=== PATIENT | male | born 1955 | race Caucasian/White ===

== ENCOUNTER → 2016-02-27 | Outpatient (REF) | payer OTHER ==
[2016-02-27 14:17] LABS: ANION GAP 9 MEQ/L (8-16); BLOOD UREA NITROGEN 15 MG/DL (7-18); CALCIUM LEVEL 8.7 MG/DL (8.8-10.2); CARBON DIOXIDE LEVEL 27 MEQ/L (21-32); CHLORIDE LEVEL 103 MEQ/L (98-107); CREATININE FOR GFR 1.16 MG/DL (0.70-1.30); GLOMERULAR FILTRATION RATE > 60.0 (>49); GLUCOSE, FASTING 181 MG/DL (80-110); POTASSIUM SERUM 4.9 MEQ/L (3.5-5.1); SODIUM LEVEL 139 MEQ/L (136-145)
== END ==
LOC: M SFHCPLAZ 11:18
PROVIDERS: ATTEND Nurse Practitioner Family
DX: E11.9 Type 2 diabetes mellitus without complications (principal)

== ENCOUNTER → 2016-05-16 | Outpatient (REF) | payer OTHER ==
[2016-05-16 12:15] LABS: ANION GAP 9 MEQ/L (8-16); BLOOD UREA NITROGEN 15 MG/DL (7-18); CALCIUM LEVEL 8.8 MG/DL (8.8-10.2); CARBON DIOXIDE LEVEL 26 MEQ/L (21-32); CHLORIDE LEVEL 104 MEQ/L (98-107); CREATININE FOR GFR 1.06 MG/DL (0.70-1.30); GLOMERULAR FILTRATION RATE > 60.0 (>49); GLUCOSE, FASTING 144 MG/DL (80-110); POTASSIUM SERUM 4.7 MEQ/L (3.5-5.1); SODIUM LEVEL 139 MEQ/L (136-145)
== END ==
LOC: M SFHCPLAZ 08:05
PROVIDERS: ATTEND Nurse Practitioner Family
DX: E11.9 Type 2 diabetes mellitus without complications (principal)

== ENCOUNTER → 2016-06-28 | Outpatient (REF) | payer OTHER ==
[2016-06-28 12:10] LABS: ALBUMIN 3.5 GM/DL (3.2-5.2); ALBUMIN/GLOBULIN RATIO 0.81 (1.00-1.93); ALKALINE PHOSPHATASE 81 U/L (45-117); ALT/SGPT 31 U/L (12-78); ANION GAP 6 MEQ/L (8-16); AST/SGOT 29 U/L (15-37); BILIRUBIN,TOTAL 0.7 MG/DL (0.2-1.0); BLOOD UREA NITROGEN 13 MG/DL (7-18); CARBON DIOXIDE LEVEL 29 MEQ/L (21-32); CHLORIDE LEVEL 104 MEQ/L (98-107); CREATININE FOR GFR 1.14 MG/DL (0.70-1.30); GLOMERULAR FILTRATION RATE > 60.0 (>49); GLUCOSE, FASTING 125 MG/DL (80-110); POTASSIUM SERUM 4.8 MEQ/L (3.5-5.1); SODIUM LEVEL 139 MEQ/L (136-145); TOTAL PROTEIN 7.8 GM/DL (6.4-8.2)
== END ==
LOC: M SFHCPLAZ 08:01
PROVIDERS: ATTEND Nurse Practitioner Family
DX: E11.9 Type 2 diabetes mellitus without complications (principal)

== ENCOUNTER 2016-09-03 14:50 | Observation (INO) | payer OTHER ==
[~2016-09-03] VITALS: Ht 177.8 cm; Wt 104.6 kg
[2016-09-03] MEDS ORDERED: GEMF600T PO (15:03)
[2016-09-03] MEDS ORDERED: ASPI81TA85 PO (15:03)
[2016-09-03] MEDS ORDERED: ATOR80TA59 PO (15:03)
[2016-09-03] MEDS ORDERED: LISI10TA4 PO (15:03)
[2016-09-03] MEDS ORDERED: METF500T13 PO (15:03)
[2016-09-03] MEDS ORDERED: LABETALOL HCL 100 MG/20 ML VIAL IV STA ×2 (15:11→17:20)
[2016-09-03 15:23] LABS: BASO # 0.1 K/mm3 (0.0-0.2); BASO % 1.1 % (0.0-1.0); EOS # 0.1 K/mm3 (0.0-0.50); EOS % 1.8 % (0.0-3.0); LARGE UNSTAINED CELL # 0.2 K/mm3 (0.0-0.4); LARGE UNSTAINED CELL % 2.5 % (0.0-4.0); LYMPH % 24.8 % (24.0-44.0); MEAN CORPUSCULAR HEMOGLOBIN 34.5 pg (27.0-33.0); MEAN CORPUSCULAR VOLUME 98.8 fl (80.0-96.0); MONO # 0.5 K/mm3 (0.0-0.8); MONO % 7.2 % (0.0-5.0); NEUTROPHILS # 4.6 K/mm3 (1.8-7.7); NEUTROPHILS % 62.6 % (36.0-66.0); PLATELET COUNT, AUTOMATED 233 k/mm3 (150-450); RED CELL DISTRIBUTION WIDTH 12.1 % (11.5-14.5); WHITE BLOOD COUNT 7.3 K/mm3 (4.0-10.0)
[2016-09-03 15:29] LABS: INR 1.02
--- NOTE | 2016-09-03 15:35 | REP ---
CT Head without contrast HISTORY: Infarction COMPARISON: None There is no intraparenchymal hemorrhage, acute infarct, mass or midline shift. The ventricular system is normal in appearance. There is no extra cerebral collection. There is no fracture. The visualized sinuses are clear. IMPRESSION: There is no intracranial lesion. Signed by Vaughn Rodríguez MD 09/03/2016 03:26 P
[2016-09-03 15:47] LABS: ANION GAP 5 MEQ/L (8-16); BLOOD UREA NITROGEN 16 MG/DL (7-18); CALCIUM LEVEL 9.1 MG/DL (8.8-10.2); CARBON DIOXIDE LEVEL 28 MEQ/L (21-32); CHLORIDE LEVEL 105 MEQ/L (98-107); CREATININE FOR GFR 1.38 MG/DL (0.70-1.30); GLOMERULAR FILTRATION RATE 55.8 (>49); GLUCOSE, FASTING 171 MG/DL (80-110); POTASSIUM SERUM 4.3 MEQ/L (3.5-5.1); SODIUM LEVEL 138 MEQ/L (136-145)
[2016-09-03] MEDS ORDERED: ASPIRIN 325 MG TAB PO ONE (16:30)
[2016-09-03] MEDS ORDERED: VITA-121 PO (17:19)
--- NOTE | 2016-09-03 17:19 | REP ---
Portable chest: Single view. History: CVA. Comparison study: No comparison film. Findings: EKG monitoring electrodes overlie the chest. Lungs are well inflated and clear. Heart is not enlarged. Pulmonary vasculature is not increased. Pleural angles are sharp. Impression: No active disease. Signed by Robel Rodríguez MD 09/04/2016 09:23 A
--- NOTE | 2016-09-03 18:10 | REP ---
MRA BRAIN WITHOUT CONTRAST: HISTORY: Infarction. 3D TOF MR angiography was performed at the level of the [place]. There is no aneurysm or arteriovenous malformation. Mild atherosclerotic disease involves the vertical petrous and cavernous internal carotid arteries. Major intracranial vessels are patent. The vertebral arteries are equal in size. IMPRESSION: 1. There is no aneurysm or arteriovenous malformation. 2. Atherosclerotic disease as described above. Signed by Vaughn Rodríguez MD 09/04/2016 08:17 A
--- NOTE | 2016-09-03 18:12 | REP ---
MRI BRAIN WITHOUT CONTRAST: HISTORY: Infarction. COMPARISON: CT 09/03/2016 Several punctate areas of increased signal intensity on T2-weighted images are present in the periventricular and subcortical white matter. This represents small vessel ischemic disease. There is no intraparenchymal hemorrhage, infarct, mass or midline shift. The ventricular system is normal in appearance. There is no extracerebral collection. Mucosal thickening is present in the left mastoid air cells. The sinuses are clear. IMPRESSION: Minimal small vessel ischemic disease. Signed by Vaughn Rodríguez MD 09/04/2016 08:17 A
--- NOTE | 2016-09-03 18:31 | ECGEPIP ---
Stationary ECG Study [facility] - ED Test Date: 2016-09-03 Pat Name: SLADE CEBALLOS Department: Room: - Gender: M Drawing In Hand: glen : 1955 Requested By: MICHELLE Keyes Order Number: [id number] Reading MD: Madyson Tang Measurements Intervals [place] Rate: 72 P: 38 [place]: 158 QRS: -9 QRSD: 102 T: 39 QT: 395 QTc: 432 Interpretive Statements SINUS RHYTHM MODERATE VOLTAGE CRITERIA FOR LVH, CONSIDER NORMAL VARIANT NSTTW ABNORMALITY NO PRIOR FOR COMPARISON Electronically Signed On 09-03-2016 18:31:20 EDT by Madyson Tang
[2016-09-03] MEDS ORDERED: ONDANSETRON 4MG/2ML VIAL (J2405) IV PRN (19:30)
[2016-09-03] MEDS ORDERED: BISACODYL 5 MG TAB PO PRN (19:30)
[2016-09-03] MEDS ORDERED: ACETAMINOPHEN TAB 650MG DOSE (2X325MG) PO PRN (19:30)
[2016-09-03] MEDS ORDERED: GLUCOSE 4 GM CHEW TABLET PO PRN (19:45)
[2016-09-03] MEDS ORDERED: GLUCAGON FOR INJ 1 MG VIAL (J1610) SC PRN (19:45)
[2016-09-03] MEDS ORDERED: hydrALAZINE INJ 20 MG/ML VIAL IV PRN (19:45)
[2016-09-03] MEDS ORDERED: DEXTROSE 50% 50 ML SYRINGE IV PRN (19:45)
[2016-09-03] MEDS ORDERED: amLODIPine 10 MG TAB PO ONE (19:45)
[2016-09-03] MEDS ORDERED: hydroCHLOROthiazide 12.5 MG CAPSULE PO ONE (20:00)
[2016-09-03 20:10] VITALS: BP 200/104
--- NOTE | 2016-09-03 20:55 | HPE ---
DATE OF ADMISSION: 09/03/2016 PRIMARY CARE PROVIDER: Benedict Duque MD CHIEF COMPLAINT: Left facial droop and slurred speech. HISTORY OF PRESENT ILLNESS: Mr. Terry is a 61-year-old male with multiple past medical history who presented to the emergency room (ER) due to experiencing left-sided facial drooping when he woke up this morning. Patient expressed the day before he felt a watery left eye, however patient thought it was conjunctivitis. Patient did not notice any weaknesses. Patient also did not have any seizure-type activities. Patient also denied fevers, chills, or night sweats. However, this morning when he woke up he noticed that he had left-sided facial drooping. Patient could not drink well because of the water dripping from the left corner of the mouth. However, patient was able to chew and able to taste the food. Patient also denied problem with smelling. Patient also denied acute vision or hearing changes. Patient also denied lightheadedness, dizziness , seizure-type activities, weaknesses in his upper or lower extremities bilaterally. Patient expressed that after having some cereal, he went to work by the bus. 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 Patient expressed that when he got to work his desktop manager asked him to come to the ER. Patient denied nausea or vomiting. Patient also denied problem with controlling his bowels or bladder. Also, patient expressed that he has been diagnosed with hypertension, however he is not always taking his medications for blood pressure. Upon patient's arrival to the ER, patient was found to have elevated blood pressure. Also, due to the physical finding, imaging was ordered and hospitalist was called to admit the patient. ALLERGIES: No known allergies. PAST MEDICAL HISTORY: 1. Mitral valve prolapse (MVP). 2. Seizure. 3. Type 2 diabetes. 4. Seborrheic dermatitis. 5. Hypertension. 6. Hypercholesterolemia. 7. Vitamin D deficiency. 8. Maikel-Danlos Syndrome. PAST SURGICAL HISTORY: 1. Colonoscopy which was done in 2013 and shows abnormal polyps. 2. Fracture of the left elbow in February 2003. 3. Fracture of the left ankle in May 2007. HOME MEDICATIONS: - aspirin 81 mg by mouth daily - atorvastatin 80 mg by mouth daily - vitamin D3 2000 units by mouth daily - gemfibrozil 600 mg by mouth twice a day - lisinopril 10 mg by mouth daily - metformin HCl 500 mg by mouth twice a day with meals (WM) FAMILY HISTORY: Patient's father is alive, however, patient does not know about his health and patient has not talked to his father since 1959. Patient's mother at age 76. She had anxiety, lung cancer, and deep venous thrombosis (DVT). Patient has three brothers and one sister. One of the brothers due to motor vehicle accident at age 5, the other brother due to motor vehicle accident at age 40, the other brother in 2006 due to a stroke. Patient's sister is alive and she is healthy. SOCIAL HISTORY: Patient lives alone. Patient has no pets. Patient denies smoking or using tobacco products. Patient has not traveled outside of [place]. Patient expressed that when he was 18 he drank some alcohol, however patient has not drank since age 18. 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 REVIEW OF SYSTEMS: GENERAL: Patient denies fever, chills, night sweats, weight loss, weight gain. HEENT: Patient denies acute vision or hearing changes. Patient denies lightheadedness or dizziness. Patient has drooping at the left corner of his mouth as well as the left side of the face. However, patient expressed that he has normal sensation on both sides of the face equally. NECK: Patient denies lumps, bumps, or decreased range of motion of his neck. HEART: Patient denies palpitations, racing or skipping heartbeat or chest pain. LUNGS: Patient denies shortness of breath, coughing, or wheezing. ABDOMEN: Patient denies abdominal pain, nausea, vomiting, diarrhea, constipation, melena, hematochezia, or hemoptysis. NEUROLOGIC: Patient denies history of transient ischemic attack (TIA), however patient has a history of seizure, however patient denies history of stroke. OBJECTIVE: VITAL SIGNS: Temperature 99.6, pulse 77, respiratory rate 18, blood pressure 216/91, pulse oximetry 96% on room air. GENERAL APPEARANCE: Patient was lying in bed, in no acute distress. Patient was awake, alert, and oriented to time, place, and person. HEENT: Normocephalic, atraumatic. Pupils are equal and reactive to light. Oral mucous is moist. Patient has left-sided drooping, the left corner of the mouth is lower compared to the right side. Also, patient has left eyelid which is mildly lower compared to the right. NECK: No lymphadenopathy. No thyromegaly. No jugular venous distention (JVD). HEART: Regular rate and rhythm, normal S1, S2. LUNGS: Clear breath sounds bilaterally. Good air movement. ABDOMEN: Soft, nontender. Positive bowel sounds in all quadrants. EXTREMITIES: No lower extremity edema. +2 pulses in both lower extremities. Patient has normal range of motion in both upper and lower extremities. NEUROLOGIC: Patient has deficiency of cranial nerve VII (facial nerve) on the left compared to the right. Patient cannot frown from the forehead on the left side. However, the rest of the cranial nerves were intact. Patient has normal swallowing intact. Patient has normal strength in both upper and lower extremities. Patient has normal sensation in both upper and lower extremities. LABORATORY DATA: Sodium 138, potassium 4.3, chloride 105, carbon dioxide 28, anion gap 5, BUN 16, creatinine 1.38, glomerular filtration rate 55.8, fasting glucose 171, calcium 9.1, total creatine kinase 160, CK-MB 1.9, CK-MB relative index 1.18, troponin I less than 0.02. White blood cells 7.3, red blood cells 4.24, hemoglobin 14.7, hematocrit 41.9, MCV 98.8, MCH 34.5, MCHC 35, RDW 12.1, platelet count 233, neutrophil percentage 62.6, lymphocyte percentage 24.8, monocyte percentage 7.2, eosinophil percentage 1.8, basophil percentage 1.1, leukocyte percentage 2.5. PT 13.5, INR 1.02, aPTT 27. IMAGING STUDIES: CT head without contrast shows no intracranial lesions. Chest x-ray shows no active disease. MRI of the brain without contrast shows minimal small vessel ischemic disease. MRA of the brain without contrast shows there is no aneurysm or arteriovenous malformation, some atherosclerotic disease. ASSESSMENT AND PLAN: 1. Facial drooping. 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 MRA and MRI did not show any indication of acute CVA event. At this time, I have started patient on prednisone 20 mg by mouth every 12 hours for 10 days. In the emergency room (ER), patient received aspirin 325, however, patient is on aspirin 81 mg by mouth daily. 2. Hypertensive urgency. EKG indicated sinus rhythm. Also first set of cardiac marker was negative and we will repeated for 2 more sets every 6 hours. Patient is not fully compliant with his hypertension medications which could contribute to this presentation also patient has white coat syndrome. At home, patient is on lisinopril 10 mg. Due to elevated blood pressure, patient has received labetalol 20 and again 10 mg IV. Also, I have stopped lisinopril due to acute kidney injury and I have started patient on Norvasc 10 mg by mouth daily. Also, we administered one dose of hydrochlorothiazide 12.5 mg by mouth. We are continuing to monitor patient's blood pressure. Also, I have ordered hydralazine 10 mg IV every 6 hours as needed for systolic blood pressure more than 160. At this time, patient is stable. 3. Acute kidney injury. This is possibly secondary to dehydration versus medication. I have stopped lisinopril and have started patient on Norvasc. Patient also has received labetalol in the emergency room (ER) and I have started patient on hydralazine as needed for elevated systolic blood pressure. Patient also was on metformin however I have a stop metformin and start patient on sliding scale 4. Deep venous thrombosis (DVT) prophylaxis. Patient is on heparin 5000 twice a day. 5. Diabetes. At home patient is on metformin, however, I have held metformin due to acute renal failure and I have started patient on sliding scale. Patient is also on consistent carbohydrate diet. 6. Seborrheic dermatitis. This is a chronic issue. At this time, patient is stable. 7. Seizures. This is a chronic issue. Patient denies having any episode for a long time. Patient is not on any seizure medication at home. 8. Maikel-Danlos Syndrome. At this time, patient is stable. My preceptor for this patient encounter was Dr. Eliseo Jackson. The preceptor was physically present in the building during the encounter and was fully available. As needed, all aspects of the patient interview, examination, medical decision making process, and medical care plan development were reviewed and approved by the preceptor. The preceptor is aware and concurs with the plan as stated in the body of this note and will attest to such by his/her cosignature. CURTIS
[2016-09-03] MEDS ORDERED: HumaLOG INSULIN (NovoLOG) PER UNIT SC SCH (21:00)
[2016-09-03] MEDS: predniSONE 20 MG TAB PO SCH (22:06)
[2016-09-03] MEDS: GEMFIBROZIL 600 MG TAB PO SCH (22:06)
[2016-09-03] MEDS: HEPARIN SOD (PORCINE) 5000 UNITS/ML VIAL SC SCH (22:07)
[2016-09-04] VITALS: BP 180/84
[2016-09-04 04:00] VITALS: BP 178/89
[2016-09-04 04:49] LABS: BASO % 0.4 % (0.0-1.0); EOS % 0.3 % (0.0-3.0); LARGE UNSTAINED CELL # 0.1 K/mm3 (0.0-0.4); LARGE UNSTAINED CELL % 0.8 % (0.0-4.0); LYMPH # 0.9 K/mm3 (1.5-4.5); LYMPH % 11.8 % (24.0-44.0); MEAN CORPUSCULAR HEMOGLOBIN 33.1 pg (27.0-33.0); MEAN CORPUSCULAR HGB CONC 33.2 g/dl (32.0-36.5); MEAN CORPUSCULAR VOLUME 99.8 fl (80.0-96.0); MONO # 0.1 K/mm3 (0.0-0.8); MONO % 1.7 % (0.0-5.0); NEUTROPHILS # 5.9 K/mm3 (1.8-7.7); NEUTROPHILS % 85.1 % (36.0-66.0); PLATELET COUNT, AUTOMATED 226 k/mm3 (150-450); RED CELL DISTRIBUTION WIDTH 12.1 % (11.5-14.5)
[2016-09-04 05:43] LABS: ALBUMIN 3.5 GM/DL (3.2-5.2); ALBUMIN/GLOBULIN RATIO 0.73 (1.00-1.93); ALKALINE PHOSPHATASE 81 U/L (45-117); ALT/SGPT 50 U/L (12-78); ANION GAP 8 MEQ/L (8-16); AST/SGOT 43 U/L (15-37); BILIRUBIN,TOTAL 0.6 MG/DL (0.2-1.0); BLOOD UREA NITROGEN 17 MG/DL (7-18); CALCIUM LEVEL 9.1 MG/DL (8.8-10.2); CARBON DIOXIDE LEVEL 23 MEQ/L (21-32); CHLORIDE LEVEL 103 MEQ/L (98-107); GLOMERULAR FILTRATION RATE 59.7 (>49); GLUCOSE, FASTING 173 MG/DL (80-110); POTASSIUM SERUM 4.4 MEQ/L (3.5-5.1); SODIUM LEVEL 134 MEQ/L (136-145); TOTAL PROTEIN 8.3 GM/DL (6.4-8.2)
[2016-09-04 08:00] VITALS: BP 154/74
[2016-09-04] MEDS: HEPARIN SOD (PORCINE) 5000 UNITS/ML VIAL SC SCH (08:23)
[2016-09-04] MEDS: predniSONE 20 MG TAB PO SCH (08:24)
[2016-09-04] MEDS: GEMFIBROZIL 600 MG TAB PO SCH (08:24)
[2016-09-04] MEDS: HumaLOG INSULIN (NovoLOG) PER UNIT SC SCH ×2 (08:24→13:08)
[2016-09-04 08:25] VITALS: BP 154/74
[2016-09-04] MEDS ORDERED: amLODIPine 10 MG TAB PO SCH (09:00)
[2016-09-04] MEDS ORDERED: VITAMIN D 1,000 INTERNATIONAL UNITS TABLET PO SCH (09:00)
[2016-09-04] MEDS ORDERED: ASPIRIN 81 MG ENTERIC TAB PO SCH (09:00)
[2016-09-04] MEDS ORDERED: ATORVASTATIN 20 MG TAB PO SCH (09:00)
[2016-09-04 12:00] VITALS: BP 176/88
[2016-09-04] MEDS ORDERED: PRED20TA PO (12:15)
[2016-09-04] MEDS ORDERED: AMLO10TA2 PO (12:15)
--- NOTE | 2016-09-05 15:38 | DSES ---
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 The day prior he had felt that his left eye was watering, he thought maybe he had a conjunctivitis. No sinus symptoms or fever, chills, headache or eye pain. He woke up in the morning. He was having trouble drinking. The water was dribbling from he corner of his mouth. He was able to chew and taste food and did not have any problems smelling. No acute vision changes, dizziness or lightheadedness. No seizure activity. No focal weakness of his arms or legs and he went to work but the staff at work sent him to the hospital because of the weakness in his face. PAST MEDICAL HISTORY: Significant for hypertension, hypercholesterolemia, Maikel-Danlos syndrome, mitral valve prolapse, seizures, type 2 diabetes. PERTINENT LABS ON ADMISSION: White count 7.3, hemoglobin 14.7, platelets 233,000. Sodium 138, potassium 4.3, BUN 16, creatinine 1.38, glucose 171. HOSPITAL COURSE: 1. The patient was admitted with hypertensive urgency with a blood pressure of 216/91. His EKG shows moderate voltage criteria for left ventricular hypertrophy (LVH) with a sinus rhythm of 72 beats per minute. Nonspecific ST-T wave abnormalities. Cardiac enzymes and CPK were normal. Norvasc was added to his blood pressure regimen after getting a dose of hydrochlorothiazide as well in the emergency room and his blood pressure improved. He will [facility] to the [facility] as an outpatient and he will followup with his blood pressure in the office. Further adjustments of blood pressure medications as needed. 2. Mckeon's palsy. He has on exam a left facial droop that involved his entire face including his forehead and unable to wrinkle his forehead or raise his eyebrow. He has trouble closing his left eye completely and he has a left lower facial droop which causes him to drool, but his vision is intact. He has no eye pain. No other focal neurologic deficits and his exam is consistent Mckeon's Palsy. MRI/MRA of the brain were negative. He was started on prednisone empirically 20 mg twice a day and he will complete a 5-day course of this. He is remains on his aspirin daily and because he is having trouble closing his left eye completely he is recommended to tape this or patch this shut when sleeping and use frequent artificial tears every 2 hours. He plans to make arrangements with his rn informatics for an eye evaluation as well as an outpatient, which was recommended. Lyme screen has been ordered as well. 3. Diabetes mellitus type 2. Blood sugars are higher currently with the prednisone. He remains on his usual medications. 4. Mild dehydration with a mildly elevated creatinine. This normalized. His creatinine was 1.38, it is down to 1.3 at time of discharge and he will be monitored as an outpatient. He has been restarted on his usual lisinopril and Norvasc was added for blood pressure control. DISPOSITION: He is stable for discharge home. Will followup with Dr. Duque next week. He is instructed to use Artificial Tears every two hours. He will followup with his rn informatics for an exam as well and he should patch or tape his eyes shut when sleeping. MEDICATIONS: - amlodipine 10 mg daily - prednisone 20 mg every 12 hours for 5 days - aspirin 81 mg daily - atorvastatin 80 mg daily - vitamin D 2000 international units daily - gemfibrozil 600 mg twice daily - lisinopril 10 mg daily - metformin 500 mg twice a day DISCHARGE DIAGNOSES: 1. Hypertensive urgency. 2. LVH. 3. Mckeon's palsy. 4. Mild acute kidney injury secondary to dehydration.
[2016-09-06 00:06] LABS: Lyme Disease IgG/IgM Antibodie <0.91 ISR (0.00-0.90); Lyme Disease IgM Ab Quantitati <0.80 index (0.00-0.79)
== END 2016-09-04 15:26 | disposition home or self-care (01) ==
LOC: M ED 14:50 → M ED INP 18:21 → M PCU 19:59
PROVIDERS: ADMIT Internal Medicine; ATTEND Family Medicine
DX: I16.0 Hypertensive urgency (principal); G51.0 Bell's palsy; I51.7 Cardiomegaly; N17.0 Acute kidney failure with tubular necrosis; E86.0 Dehydration; I10 Essential (primary) hypertension; E78.00 Pure hypercholesterolemia, unspecified; Q79.6 Ehlers-Danlos syndromes; I34.0 Nonrheumatic mitral (valve) insufficiency; R56.9 Unspecified convulsions; E11.9 Type 2 diabetes mellitus without complications; Z79.82 Long term (current) use of aspirin; Z79.899 Other long term (current) drug therapy

== ENCOUNTER → 2016-12-06 | Outpatient (REF) | payer OTHER ==
[~2016-12-06] MED LIST: AMLO10TA2 PO; ASPI81TA85 PO; ATOR80TA59 PO; GEMF600T PO; LISI10TA4 PO; METF500T13 PO; PRED20TA PO; VITA-121 PO
[2016-12-06 12:47] LABS: ANION GAP 9 MEQ/L (8-16); BLOOD UREA NITROGEN 20 MG/DL (7-18); CALCIUM LEVEL 9.8 MG/DL (8.8-10.2); CARBON DIOXIDE LEVEL 26 MEQ/L (21-32); CHLORIDE LEVEL 103 MEQ/L (98-107); CREATININE FOR GFR 1.18 MG/DL (0.70-1.30); GLOMERULAR FILTRATION RATE > 60.0 (>49); GLUCOSE, FASTING 162 MG/DL (80-110); POTASSIUM SERUM 4.5 MEQ/L (3.5-5.1); SODIUM LEVEL 138 MEQ/L (136-145)
== END ==
LOC: M SFHCPLAZ 07:56
PROVIDERS: ATTEND Nurse Practitioner Family
DX: I10 Essential (primary) hypertension (principal)

== ENCOUNTER → 2017-01-03 | Outpatient (REF) | payer OTHER ==
[2017-01-03 12:23] LABS: FREE T4 1.12 NG/DL (0.76-1.46)
[2017-01-03 12:40] LABS: FOLATE 13.9 NG/ML (>5.4)
== END ==
LOC: M SFHCPLAZ 08:31
PROVIDERS: ATTEND Nurse Practitioner Family
DX: D64.9 Anemia, unspecified (principal); E78.2 Mixed hyperlipidemia

== ENCOUNTER → 2017-03-31 | Outpatient (REF) | payer OTHER ==
[2017-03-31 12:03] LABS: ESTIMATED AVERAGE GLUCOSE 163 MG/DL (60-110); HEMOGLOBIN A1c 7.3 %
[2017-03-31 12:06] LABS: TOTAL 25(OH) VITAMIN D 16.3 NG/ML (30.0-100.0)
[2017-03-31 12:11] LABS: ALBUMIN 3.7 GM/DL (3.2-5.2); ALBUMIN/GLOBULIN RATIO 0.86 (1.00-1.93); ALKALINE PHOSPHATASE 86 U/L (45-117); ALT/SGPT 60 U/L (12-78); ANION GAP 9 MEQ/L (8-16); AST/SGOT 63 U/L (7-37); BILIRUBIN,TOTAL 0.4 MG/DL (0.2-1.0); BLOOD UREA NITROGEN 20 MG/DL (7-18); CALCIUM LEVEL 9.2 MG/DL (8.8-10.2); CARBON DIOXIDE LEVEL 25 MEQ/L (21-32); CHLORIDE LEVEL 105 MEQ/L (98-107); CREATININE FOR GFR 1.12 MG/DL (0.70-1.30); GLOMERULAR FILTRATION RATE > 60.0 (>49); GLUCOSE, FASTING 133 MG/DL (70-100); POTASSIUM SERUM 4.8 MEQ/L (3.5-5.1); SODIUM LEVEL 139 MEQ/L (136-145)
== END ==
LOC: M SFHCPLAZ 08:09
DX: E11.9 Type 2 diabetes mellitus without complications (principal); E55.9 Vitamin D deficiency, unspecified
CPT/HCPCS: 83036

== ENCOUNTER → 2017-09-30 | Outpatient (REF) | payer OTHER ==
[2017-09-30 11:11] LABS: ALBUMIN 3.6 GM/DL (3.2-5.2); ALBUMIN/GLOBULIN RATIO 0.82 (1.00-1.93); ALKALINE PHOSPHATASE 88 U/L (45-117); ALT/SGPT 37 U/L (12-78); ANION GAP 8 MEQ/L (8-16); AST/SGOT 34 U/L (7-37); BILIRUBIN,TOTAL 0.5 MG/DL (0.2-1.0); BLOOD UREA NITROGEN 19 MG/DL (7-18); CALCIUM LEVEL 8.9 MG/DL (8.8-10.2); CARBON DIOXIDE LEVEL 25 MEQ/L (21-32); CHLORIDE LEVEL 105 MEQ/L (98-107); CREATININE FOR GFR 1.16 MG/DL (0.70-1.30); GLOMERULAR FILTRATION RATE > 60.0 (>49); GLUCOSE, FASTING 133 MG/DL (70-100); POTASSIUM SERUM 4.6 MEQ/L (3.5-5.1); SODIUM LEVEL 138 MEQ/L (136-145)
[2017-09-30 11:26] LABS: ESTIMATED AVERAGE GLUCOSE 151 MG/DL (60-110); HEMOGLOBIN A1c 6.9 %
== END ==
LOC: M SFHCPLAZ 08:05
DX: E11.9 Type 2 diabetes mellitus without complications (principal)
CPT/HCPCS: 80053

== ENCOUNTER → 2018-01-12 | Outpatient (REF) | payer OTHER ==
[2018-01-12 12:41] LABS: ALBUMIN 3.8 GM/DL (3.2-5.2); ALBUMIN/GLOBULIN RATIO 0.83 (1.00-1.93); ALKALINE PHOSPHATASE 92 U/L (45-117); ALT/SGPT 60 U/L (12-78); ANION GAP 10 MEQ/L (8-16); AST/SGOT 67 U/L (7-37); BILIRUBIN,TOTAL 0.7 MG/DL (0.2-1.0); BLOOD UREA NITROGEN 21 MG/DL (7-18); CARBON DIOXIDE LEVEL 25 MEQ/L (21-32); CHLORIDE LEVEL 104 MEQ/L (98-107); CHOLESTEROL LEVEL 186 MG/DL (<200); CHOLESTEROL RISK RATIO 4.769 (<5); CREATININE FOR GFR 1.38 MG/DL (0.70-1.30); GLOMERULAR FILTRATION RATE 55.6 (>49); GLUCOSE, FASTING 127 MG/DL (70-100); HDL CHOLESTEROL 39 MG/DL (>40); LDL CHOLESTEROL 105 MG/DL (<100); NON-HDL-C 147 MG/DL; SODIUM LEVEL 139 MEQ/L (136-145); TOTAL PROTEIN 8.4 GM/DL (6.4-8.2); TRIGLYCERIDES LEVEL 210 MG/DL (<150)
[2018-01-12 12:57] LABS: CREATININE, URINE 71.5 MG/DL; MALB URINE SIEMENS 29.2 MG/L; MAU/CREAT RATIO 40.8 MCG/MG (0.0-30.0)
[2018-01-12 13:59] LABS: ESTIMATED AVERAGE GLUCOSE 160 MG/DL (60-110); HEMOGLOBIN A1c 7.2 %
== END ==
LOC: M SFHCPLAZ 08:03
DX: E11.9 Type 2 diabetes mellitus without complications (principal); I10 Essential (primary) hypertension; E78.2 Mixed hyperlipidemia
CPT/HCPCS: 80053

== ENCOUNTER → 2018-02-09 | Outpatient (CLI) | payer OTHER ==
[~2018-02-09] MED LIST changes: -AMLO10TA2 PO; +AMLO10TA4 PO; -GEMF600T PO; +GEMF600T5 PO
--- NOTE | 2018-02-09 08:08 | REP ---
Clinical: Abnormal liver function tests. Technique: Real time albarado scale ultrasound examination using curved array transducer. Findings: The liver is mildly increased echogenicity suggesting fatty infiltration without focal hepatic lesion identified. The pancreas is incompletely evaluated due to interposed bowel gas but visualized portions appear normal. The gallbladder is unremarkable and without gallstones, wall thickening, or pericholecystic fluid. No biliary ductal dilatation is appreciated. The common bile duct measures 4.0 mm diameter. The right kidney is normal in reniform shape and echogenicity without hydronephrosis, measuring 12.9 x 4.9 x 4.6 cm. No ascites in the visualized right upper quadrant. Impression: Hepatosteatosis. Electronically Signed by Howard Cifuentes MD 02/09/2018 07:59 A
== END ==
LOC: M RAD 07:04
PROVIDERS: ATTEND Nurse Practitioner Family
DX: K76.0 Fatty (change of) liver, not elsewhere classified (principal); R94.5 Abnormal results of liver function studies

== ENCOUNTER → 2018-03-12 | Outpatient (REF) | payer OTHER ==
[~2018-03-12] MED LIST changes: -AMLO10TA4 PO; +AMLO10TA5 PO
[2018-03-12 10:28] LABS: ALBUMIN 3.3 GM/DL (3.2-5.2); ALT/SGPT 39 U/L (12-78); BILIRUBIN,TOTAL 0.4 MG/DL (0.2-1.0); BLOOD UREA NITROGEN 15 MG/DL (7-18); CALCIUM LEVEL 8.7 MG/DL (8.8-10.2); CARBON DIOXIDE LEVEL 26 MEQ/L (21-32); CHLORIDE LEVEL 105 MEQ/L (98-107); CREATININE FOR GFR 1.15 MG/DL (0.70-1.30); FERRITIN 212 NG/ML (26-388); GLOMERULAR FILTRATION RATE > 60.0 (>49); GLUCOSE, FASTING 141 MG/DL (70-100); IRON (FE) 74 UG/DL (65-175); PERCENT SATURATION 24.3 % (19.7-50.0); POTASSIUM SERUM 4.6 MEQ/L (3.5-5.1); SODIUM LEVEL 139 MEQ/L (136-145); TOTAL IRON BINDING CAPACITY 304 UG/DL (250-450); TOTAL PROTEIN 7.7 GM/DL (6.4-8.2)
[2018-03-13 10:31] LABS: HEPATITIS B SURFACE ANTIGEN NEGATIVE (NEGATIVE)
[2018-03-13 10:59] LABS: HEPATITIS B CORE ANTIBODY IGM NEGATIVE (NEGATIVE); HEPATITIS C VIRUS ABY INDEX 0.1 INDEX (<0.8)
[2018-03-13 11:01] LABS: HEPATITIS A ANTIBODY IGM NEGATIVE (NEGATIVE)
== END ==
LOC: M SFHCPLAZ 08:03
PROVIDERS: ATTEND Nurse Practitioner Family
DX: I10 Essential (primary) hypertension (principal); R94.5 Abnormal results of liver function studies

== ENCOUNTER → 2018-03-19 | Outpatient (REF) | payer OTHER ==
[~2018-03-19] MED LIST changes: +ALOG25TA; +LISINOP/HCTZ; +STEG15TA
[2018-03-19 13:39] LABS: HEMOGLOBIN A1c 7.7 %
== END ==
LOC: M SFHCPLAZ 08:19
PROVIDERS: ATTEND Nurse Practitioner Family
DX: E11.9 Type 2 diabetes mellitus without complications (principal)

== ENCOUNTER 2018-03-21 09:54 | Emergency (ER) | payer OTHER ==
[~2018-03-21] VITALS: Ht 175.3 cm; Wt 107.4 kg
[~2018-03-21 09:54] MED LIST changes: -ALOG25TA; -LISINOP/HCTZ; -STEG15TA
[2018-03-21] MEDS ORDERED: HEPARIN SOD (PORCINE) 5000 UNITS/ML VIAL ONE (09:55)
[2018-03-21] MEDS ORDERED: HEPARIN 25,000 UNITS/250 ML D5W BAG (100 UNITS/ML) ONE (09:55)
[2018-03-21] MEDS ORDERED: STEG15TA (10:05)
[2018-03-21] MEDS ORDERED: ALOG25TA (10:05)
[2018-03-21] MEDS ORDERED: LISINOP/HCTZ (10:05)
[2018-03-21] MEDS ORDERED: NITROGLYCERIN 0.4 MG SUBL TABLET As Ordered ONE (10:29)
[2018-03-21] MEDS ORDERED: ASPIRIN 325 MG TAB As Ordered ONE (10:29)
[2018-03-21] MEDS ORDERED: ASPIRIN 81 MG CHEW TABLET As Ordered ONE (10:30)
[2018-03-21] MEDS ORDERED: ASPIRIN 81 MG CHEW TABLET PO ONE (10:30)
[2018-03-21 10:34] LABS: BASO # 0.1 10^3/uL (0.0-0.2); BASO % 0.5 % (0.0-1.0); EOS # 0.1 10^3/uL (0.0-0.50); EOS % 0.5 % (0.0-3.0); HEMATOCRIT 41.6 % (42.0-52.0); HEMOGLOBIN 14.5 g/dl (13.5-17.5); LYMPH # 1.6 10^3/uL (1.5-4.5); LYMPH % 13.6 % (24.0-44.0); MEAN CORPUSCULAR HEMOGLOBIN 33.6 pg (27.0-33.0); MEAN CORPUSCULAR HGB CONC 34.9 g/dl (32.0-36.5); MEAN CORPUSCULAR VOLUME 96.3 fl (80.0-96.0); MONO # 0.7 10^3/uL (0.0-0.8); MONO % 6.1 % (0.0-5.0); NEUTROPHILS # 9.3 10^3/uL (1.8-7.7); NEUTROPHILS % 78.9 % (36.0-66.0); PLATELET COUNT, AUTOMATED 256 10^3/uL (150-450); RED BLOOD COUNT 4.32 10^6/uL (4.30-6.10); WHITE BLOOD COUNT 11.7 10^3/uL (4.0-10.0)
[2018-03-21] MEDS: NITROGLYCERIN 0.4 MG SUBL TABLET SL PRN ×4 (10:36→10:47)
[2018-03-21 10:38] LABS: PROTHROMBIN TIME 13.3 SECONDS (12.1-14.4)
[2018-03-21 10:39] LABS: PARTIAL THROMBOPLASTIN TIME 26.8 SECONDS (25.4-37.6)
[2018-03-21] MEDS ORDERED: HEPARIN DRIP 25,000 UNITS in APPROPRIATE DILUENT 1 EA IV SCH (10:39)
[2018-03-21] MEDS ORDERED: METOPROLOL TART 25 MG TABLET PO ONE (10:45)
[2018-03-21] MEDS ORDERED: MORPHINE 2 MG/ML 1ML SYRINGE (J2270) IV PRN (10:45)
[2018-03-21] MEDS ORDERED: HEPARIN SOD (PORCINE) 5000 UNITS/ML VIAL IV ONE (10:45)
[2018-03-21 10:53] LABS: ALBUMIN 3.7 GM/DL (3.2-5.2); ALT/SGPT 37 U/L (12-78); BILIRUBIN,DIRECT 0.1 MG/DL (0.0-0.2); BILIRUBIN,TOTAL 0.5 MG/DL (0.2-1.0); BLOOD UREA NITROGEN 18 MG/DL (7-18); CALCIUM LEVEL 9.4 MG/DL (8.8-10.2); CARBON DIOXIDE LEVEL 22 MEQ/L (21-32); CHLORIDE LEVEL 98 MEQ/L (98-107); CPK CREATINE PHOSPHOKINASE 361 U/L (39-308); CREATININE FOR GFR 1.42 MG/DL (0.70-1.30); GLOMERULAR FILTRATION RATE 53.6 (>49); GLUCOSE, FASTING 214 MG/DL (70-100); LIPASE 212 U/L (73-393); MB/CK RELATIVE INDEX 1.25 (< OR =4); NT-PRO BNP 84 PG/ML (<125); POTASSIUM SERUM 4.3 MEQ/L (3.5-5.1); SODIUM LEVEL 133 MEQ/L (136-145); TOTAL PROTEIN 8.5 GM/DL (6.4-8.2); TROPONIN I < 0.02 NG/ML (< 0.10)
[2018-03-21] MEDS: fentaNYL 100 MCG/2 ML INJECTION (J3010) IV PRN ×2 (11:09→11:27)
[2018-03-21 11:41] VITALS: BP 154/72
[2018-03-21] MEDS ORDERED: NITROGLYCERIN 2% OINT 1 GM *U/D* PKT TOP ONE (11:45)
[2018-03-21 12:52] LABS: MB/CK RELATIVE INDEX 1.36 (< OR =4); TROPONIN I 0.05 NG/ML (< 0.10)
[2018-03-21 15:03] LABS: MB/CK RELATIVE INDEX 2.08 (< OR =4); TROPONIN I 0.92 NG/ML (< 0.10)
[2018-03-21 15:50] VITALS: BP 164/73
--- NOTE | 2018-03-22 09:17 | ECGEPIP ---
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
--- NOTE | 2018-03-22 09:18 | ECGEPIP ---
Stationary ECG Study [facility] - ED Test Date: 2018-03-21 Pat Name: SLADE CEBALLOS Department: Room: - Gender: M [employer] Teacher: JAlice : 1955 Requested By: Sajan Root Order Number: [id number] Reading MD: Madyson Tang Measurements Intervals [place] Rate: 61 P: 33 [place]: 167 QRS: -7 QRSD: 105 T: 72 QT: 449 QTc: 454 Interpretive Statements SINUS RHYTHM LEFT VENTRICULAR HYPERTROPHY AND ST-T CHANGE VS ISCHEMIA INFERIOR INFARCT, AGE INDETERMINATE, CLINICAL CORRELATION Electronically Signed On 03-22-2018 9:17:52 EST by Madyson Tang
--- NOTE | 2018-03-22 09:20 | ECGEPIP ---
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
--- NOTE | 2018-03-23 07:38 | REP ---
Clinical: Acute chest pain . Comparison: 09/03/2016 . Findings: The mediastinum and cardiac silhouette are stable and within normal limits for portable technique. The lung ribera are clear without acute consolidation, effusion, or pneumothorax. Skeletal structures are intact. Impression: No acute cardiopulmonary process appreciated. Electronically Signed by Howard Cifuentes MD 03/21/2018 10:44 A
== END 2018-03-21 15:54 | disposition short-term general hospital (02) ==
LOC: M ED 09:54
DX: I20.0 Unstable angina (principal); R94.31 Abnormal electrocardiogram [ECG] [EKG]; I10 Essential (primary) hypertension; E11.9 Type 2 diabetes mellitus without complications; G40.909 Epilepsy, unspecified, not intractable, without status epilepticus; Q79.6 Ehlers-Danlos syndromes; I34.1 Nonrheumatic mitral (valve) prolapse; Z79.899 Other long term (current) drug therapy; Z79.84 Long term (current) use of oral hypoglycemic drugs
CPT/HCPCS: 71045; 80048; 80076; 82550; 82553; 83690; 83880; 84443; 85025; 85610; 85730; 93005; 93041; 94760; 96374; 96375; 99285; J3010

== ENCOUNTER → 2018-05-28 | Outpatient (REF) | payer OTHER ==
[~2018-05-28] MED LIST changes: +ALOG25TA; +LISINOP/HCTZ; +STEG15TA
[2018-05-28 12:02] LABS: BLOOD UREA NITROGEN 18 MG/DL (7-18); CALCIUM LEVEL 9.1 MG/DL (8.8-10.2); CARBON DIOXIDE LEVEL 26 MEQ/L (21-32); CHLORIDE LEVEL 106 MEQ/L (98-107); CREATININE FOR GFR 1.17 MG/DL (0.70-1.30); GLOMERULAR FILTRATION RATE > 60.0 (>49); GLUCOSE, FASTING 127 MG/DL (70-100); POTASSIUM SERUM 4.7 MEQ/L (3.5-5.1); SODIUM LEVEL 139 MEQ/L (136-145)
== END ==
LOC: M SFHCPLAZ 08:02
PROVIDERS: ATTEND Nurse Practitioner Family
DX: I10 Essential (primary) hypertension (principal)

== ENCOUNTER → 2018-06-04 | Outpatient (REF) | payer OTHER ==
[2018-06-04 13:23] LABS: HEMOGLOBIN A1c 6.7 %
== END ==
LOC: M SFHCPLAZ 08:56
PROVIDERS: ATTEND Nurse Practitioner Family
DX: E11.9 Type 2 diabetes mellitus without complications (principal); E55.9 Vitamin D deficiency, unspecified

== ENCOUNTER → 2018-09-04 | Outpatient (REF) | payer OTHER ==
[2018-09-04 10:16] LABS: HEMOGLOBIN A1c 7.1 %
[2018-09-04 10:33] LABS: ALT/SGPT 28 U/L (12-78); BILIRUBIN,TOTAL 0.7 MG/DL (0.2-1.0); BLOOD UREA NITROGEN 21 MG/DL (7-18); CALCIUM LEVEL 8.7 MG/DL (8.8-10.2); CARBON DIOXIDE LEVEL 26 MEQ/L (21-32); CHLORIDE LEVEL 106 MEQ/L (98-107); CREATININE FOR GFR 1.27 MG/DL (0.70-1.30); GLOMERULAR FILTRATION RATE > 60.0 (>49); GLUCOSE, FASTING 109 MG/DL (70-100); POTASSIUM SERUM 4.4 MEQ/L (3.5-5.1); SODIUM LEVEL 140 MEQ/L (136-145); TOTAL PROTEIN 8.2 GM/DL (6.4-8.2)
[2018-09-04 10:44] LABS: TOTAL 25(OH) VITAMIN D 20.5 NG/ML (30.0-100.0)
== END ==
LOC: M SFHCPLAZ 08:28
PROVIDERS: ATTEND Nurse Practitioner Family
DX: E11.9 Type 2 diabetes mellitus without complications (principal); E78.2 Mixed hyperlipidemia; E55.9 Vitamin D deficiency, unspecified

== ENCOUNTER → 2018-12-01 | Outpatient (REF) | payer OTHER ==
[~2018-12-01] MED LIST changes: +ASPI81TA26; +EZET10TA21; +LISI20TA20; +METF10004; +METO1TAB32; +ROBA750T4 PO; +TRUL0.5I; +VITA2000
[2018-12-01 10:31] LABS: ALT/SGPT 33 U/L (12-78); BILIRUBIN,TOTAL 0.7 MG/DL (0.2-1.0); BLOOD UREA NITROGEN 17 MG/DL (7-18); CALCIUM LEVEL 9.7 MG/DL (8.8-10.2); CARBON DIOXIDE LEVEL 27 MEQ/L (21-32); CHLORIDE LEVEL 101 MEQ/L (98-107); CHOLESTEROL LEVEL 233 MG/DL (<200); CHOLESTEROL RISK RATIO 5.974 (<5); GLOMERULAR FILTRATION RATE 50.3 (>49); GLUCOSE, FASTING 131 MG/DL (70-100); HDL CHOLESTEROL 39 MG/DL (>40); HEMOGLOBIN A1c 6.4 %; NON-HDL-C 194 MG/DL; POTASSIUM SERUM 5.1 MEQ/L (3.5-5.1); SODIUM LEVEL 137 MEQ/L (136-145); TOTAL PROTEIN 8.4 GM/DL (6.4-8.2); TRIGLYCERIDES LEVEL 421 MG/DL (<150)
[2018-12-01 11:34] LABS: TOTAL 25(OH) VITAMIN D 23.2 NG/ML (30.0-100.0)
[2018-12-01 12:51] LABS: MAU/CREAT RATIO 21.7 MCG/MG (0.0-30.0)
== END ==
LOC: M SFHCPLAZ 08:33
PROVIDERS: ATTEND Nurse Practitioner Family
DX: E55.9 Vitamin D deficiency, unspecified (principal); E11.9 Type 2 diabetes mellitus without complications; E78.2 Mixed hyperlipidemia

== ENCOUNTER → 2018-12-07 | Outpatient (REF) | payer OTHER ==
[~2018-12-07] MED LIST changes: -ASPI81TA26; -EZET10TA21; -LISI20TA20; -METF10004; -METO1TAB32; -ROBA750T4 PO; -TRUL0.5I; -VITA2000
[2018-12-07 10:26] LABS: CALCIUM LEVEL 9.3 MG/DL (8.8-10.2); CREATININE FOR GFR 1.34 MG/DL (0.70-1.30); GLOMERULAR FILTRATION RATE 57.3 (>49); POTASSIUM SERUM 4.6 MEQ/L (3.5-5.1)
== END ==
LOC: M SFHCPLAZ 07:15
PROVIDERS: ATTEND Nurse Practitioner Family
DX: N17.9 Acute kidney failure, unspecified (principal)

== ENCOUNTER 2018-12-31 10:47 | Emergency (ER) | payer OTHER ==
[~2018-12-31] VITALS: Ht 177.8 cm; Wt 99.9 kg
[2018-12-31] MEDS ORDERED: LISI20TA20 (10:56)
[2018-12-31] MEDS ORDERED: TRUL0.5I (10:56)
[2018-12-31] MEDS ORDERED: METO1TAB32 (10:56)
[2018-12-31] MEDS ORDERED: VITA2000 (10:56)
[2018-12-31] MEDS ORDERED: EZET10TA21 (10:56)
[2018-12-31] MEDS ORDERED: ASPI81TA26 (10:56)
[2018-12-31] MEDS ORDERED: METF10004 (10:56)
[2018-12-31] MEDS ORDERED: LIDOCAINE 5% (LIDODERM) PATCH TD ONE (12:15)
[2018-12-31] MEDS ORDERED: ROBA750T4 PO (12:29)
[2018-12-31 12:36] VITALS: BP 170/79
[2018-12-31] MEDS ORDERED: KETOROLAC 30 MG/ML VIAL (J1885) IM ONE (13:00)
[2018-12-31] MEDS ORDERED: **NOTE PATIENT COMMENT** MISC XX SCH (21:00)
== END 2018-12-31 12:59 | disposition home or self-care (01) ==
LOC: M ED 10:47
DX: M54.41 Lumbago with sciatica, right side (principal); I25.2 Old myocardial infarction; E11.9 Type 2 diabetes mellitus without complications; I10 Essential (primary) hypertension; N17.9 Acute kidney failure, unspecified; Z79.82 Long term (current) use of aspirin; Z79.84 Long term (current) use of oral hypoglycemic drugs; Z79.899 Other long term (current) drug therapy
CPT/HCPCS: 96372; 99283; J1885

== ENCOUNTER → 2019-01-29 | Outpatient (REF) | payer OTHER ==
[~2019-01-29] MED LIST changes: +ASPI81TA26; +EZET10TA21; +LISI20TA20; +METF10004; +METO1TAB32; +ROBA750T4 PO; +TRUL0.5I; +VITA2000
[2019-01-29 14:39] LABS: HEMOGLOBIN A1c 6.7 %
== END ==
LOC: M SFHCPLAZ 11:40
PROVIDERS: ATTEND Physician Assistant
DX: E11.9 Type 2 diabetes mellitus without complications (principal); E55.9 Vitamin D deficiency, unspecified

== ENCOUNTER → 2019-05-03 | Outpatient (REF) | payer OTHER ==
[2019-05-03 11:00] LABS: BLOOD UREA NITROGEN 19 MG/DL (7-18); CARBON DIOXIDE LEVEL 26 MEQ/L (21-32); CHLORIDE LEVEL 107 MEQ/L (98-107); CHOLESTEROL LEVEL 127 MG/DL (<200); CHOLESTEROL RISK RATIO 3.175 (<5); CREATININE FOR GFR 1.27 MG/DL (0.70-1.30); GLOMERULAR FILTRATION RATE > 60.0 (>49); GLUCOSE, FASTING 120 MG/DL (70-100); HDL CHOLESTEROL 40 MG/DL (>40); LDL CHOLESTEROL 70 MG/DL (<100); NON-HDL-C 87 MG/DL; POTASSIUM SERUM 4.6 MEQ/L (3.5-5.1); SODIUM LEVEL 140 MEQ/L (136-145); TRIGLYCERIDES LEVEL 85 MG/DL (<150)
[2019-05-03 11:58] LABS: HEMOGLOBIN A1c 6.6 %
== END ==
LOC: M SFHCPLAZ 08:25
PROVIDERS: ATTEND Physician Assistant
DX: E11.9 Type 2 diabetes mellitus without complications (principal); E78.2 Mixed hyperlipidemia

== ENCOUNTER → 2019-07-30 | Outpatient (CLI) | payer OTHER ==
[~2019-07-30] MED LIST changes: -ASPI81TA26; +ASPI81TA26 PO; +CLOP75TA2 PO; -EZET10TA21; +EZET10TA21 PO; -LISI20TA20; +LISI20TA20 PO; -METF10004; +METF10004 PO; -METO1TAB32; +METO1TAB32 PO; +NITR0.4S14 SL; +STEG15TA PO; -TRUL0.5I; +TRUL0.5I PO; -VITA2000; +VITA2000 PO
== END ==
LOC: M LABSMTC 09:28
PROVIDERS: ATTEND Anesthesiology
DX: Z01.818 Encounter for other preprocedural examination (principal); Z11.59 Encounter for screening for other viral diseases
CPT/HCPCS: C9803; U0003

== ENCOUNTER 2019-08-02 07:13 | Day surgery (SDC) | payer OTHER ==
[~2019-08-02] VITALS: Ht 167.6 cm; Wt 99.1 kg
[~2019-08-02 07:13] MED LIST changes: +LIDOCAINE 2% 100MG/5ML SDV (FOR ANES.) As Ordered ONE; +NS 1,000 ML IV ONE; +propofoL 200 MG/20 ML VIAL As Ordered ONE
[2019-08-02] MEDS ORDERED: propofoL 200 MG/20 ML VIAL As Ordered ONE (09:00)
--- NOTE | 2019-08-02 09:14 | ROOR ---
Patient Name: Raymond Terry Procedure Date: 08/02/2019 8:24 AM Date of : 1955 Age: 64 Room: [facility] Gender: Male Note Status: Finalized Procedure: Total Colonoscopy to Cecum + Cold Snare Polypectomy Indications: High risk colon cancer surveillance: Personal history of colonic polyps, Last colonoscopy: 2013 Providers: Anupam Yo MD Referring MD: Nicolasa Henriquez Requesting Provider: Medicines: Monitored Anesthesia Care Complications: No immediate complications. Procedure: Pre-Anesthesia Assessment: - The heart rate, respiratory rate, oxygen saturations, blood pressure, adequacy of pulmonary ventilation, and response to care were monitored throughout the procedure. The Colonoscope was introduced through the anus and advanced to the cecum, identified by appendiceal orifice and ileocecal valve. The colonoscopy was performed without difficulty. The patient tolerated the procedure well. The quality of the bowel preparation was excellent. Findings: The perianal and digital rectal examinations were normal. Non-bleeding internal hemorrhoids were found during retroflexion. The hemorrhoids were small and Grade I (internal hemorrhoids that do not prolapse). Multiple small and large-mouthed diverticula were found in the recto-sigmoid colon, sigmoid colon and descending colon. Multiple sessile polyps were found in the ascending colon and cecum. The polyps were small in size. These polyps were removed with a cold snare. Resection and retrieval were complete. The exam was otherwise without abnormality on direct and retroflexion views. Impression: - Non-bleeding internal hemorrhoids. - Diverticulosis in the recto-sigmoid colon, in the sigmoid colon and in the descending colon. - Multiple small polyps in the ascending colon and in the cecum, removed with a cold snare. Resected and retrieved. - The examination was otherwise normal on direct and retroflexion views. - The exam was otherwise normal to the cecum. Recommendation: - Patient has a contact number available for emergencies. The signs and symptoms of potential delayed complications were discussed with the patient. Return to normal activities tomorrow. Written discharge instructions were provided to the patient. - High fiber diet. - Discharge patient to home. - Continue present medications. - Await pathology results. - Telephone GI clinic for pathology results in 1 week. - Repeat colonoscopy for surveillance based on pathology results. - Return to referring physician. - Resume Plavix (clopidogrel) at prior dose today. - The findings and recommendations were discussed with the patient's family. Anupam Yo MD Anupam Yo MD 08/02/2019 9:13:50 AM Electronically signed by Anupam Yo MD Number of Addenda: 0 Note Initiated On: 08/02/2019 8:24 AM Estimated Blood Loss: Estimated blood loss: none.
[2019-08-02 09:25] VITALS: BP 167/75
== END 2019-08-02 12:55 | disposition home or self-care (01) ==
LOC: M OPP 07:13
PROVIDERS: ATTEND Internal Medicine Gastroenterology
DX: Z12.11 Encounter for screening for malignant neoplasm of colon (principal); Z86.010 Personal history of colon polyps; D12.0 Benign neoplasm of cecum; D12.2 Benign neoplasm of ascending colon; K57.30 Diverticulosis of large intestine without perforation or abscess without bleeding; K64.0 First degree hemorrhoids; Z79.82 Long term (current) use of aspirin; Z79.84 Long term (current) use of oral hypoglycemic drugs; Z79.899 Other long term (current) drug therapy

== ENCOUNTER → 2019-11-15 | Outpatient (CLI) | payer OTHER ==
[~2019-11-15] MED LIST changes: -AMLO10TA5 PO; +AMLO1TAB25 PO; -ASPI81TA85 PO; +ASPI81TA86 PO; -LIDOCAINE 2% 100MG/5ML SDV (FOR ANES.) As Ordered ONE; -NS 1,000 ML IV ONE; -propofoL 200 MG/20 ML VIAL As Ordered ONE
[2019-11-15 15:01] LABS: BLOOD UREA NITROGEN 21 MG/DL (7-18); CALCIUM LEVEL 9.5 MG/DL (8.8-10.2); CARBON DIOXIDE LEVEL 24 MEQ/L (21-32); CHLORIDE LEVEL 107 MEQ/L (98-107); CHOLESTEROL LEVEL 237 MG/DL (<200); CHOLESTEROL RISK RATIO 6.076 (<5); CREATININE FOR GFR 1.25 MG/DL (0.70-1.30); GLOMERULAR FILTRATION RATE > 60.0 (>49); GLUCOSE, FASTING 117 MG/DL (70-100); HDL CHOLESTEROL 39 MG/DL (>40); NON-HDL-C 198 MG/DL; POTASSIUM SERUM 4.8 MEQ/L (3.5-5.1); SODIUM LEVEL 137 MEQ/L (136-145); TRIGLYCERIDES LEVEL 440 MG/DL (<150)
[2019-11-15 16:18] LABS: HEMOGLOBIN A1c 6.1 %
== END ==
LOC: M PLALAB 09:59
PROVIDERS: ATTEND Physician Assistant
DX: E11.9 Type 2 diabetes mellitus without complications (principal); E78.2 Mixed hyperlipidemia

== ENCOUNTER → 2020-06-13 | Outpatient (REF) | payer MEDICARE, MEDICAID ==
[~2020-06-13] MED LIST changes: +LISI10TA22 PO; -LISI10TA4 PO
[2020-06-13 15:29] LABS: ALBUMIN 3.9 GM/DL (3.2-5.2); ALT/SGPT 27 U/L (12-78); BILIRUBIN,TOTAL 0.8 MG/DL (0.2-1.0); BLOOD UREA NITROGEN 27 MG/DL (7-18); CALCIUM LEVEL 9.8 MG/DL (8.8-10.2); CARBON DIOXIDE LEVEL 25 MEQ/L (21-32); CHLORIDE LEVEL 103 MEQ/L (98-107); CHOLESTEROL LEVEL 215 MG/DL (<200); CHOLESTEROL RISK RATIO 4.886 (<5); CREATININE FOR GFR 1.21 MG/DL (0.70-1.30); GLOMERULAR FILTRATION RATE > 60.0 (>49); GLUCOSE, FASTING 110 MG/DL (70-100); HDL CHOLESTEROL 44 MG/DL (>40); LDL CHOLESTEROL 134 MG/DL (<100); NON-HDL-C 171 MG/DL; POTASSIUM SERUM 4.5 MEQ/L (3.5-5.1); SODIUM LEVEL 136 MEQ/L (136-145); TOTAL PROTEIN 8.3 GM/DL (6.4-8.2); TRIGLYCERIDES LEVEL 184 MG/DL (<150)
[2020-06-13 15:33] LABS: CREATININE, URINE 69.3 MG/DL; MAU/CREAT RATIO 25.9 MCG/MG (0.0-30.0)
[2020-06-13 16:40] LABS: HEMOGLOBIN A1c 6.3 %
== END ==
LOC: M PLALAB 08:21
PROVIDERS: ATTEND Physician Assistant
DX: I10 Essential (primary) hypertension (principal); E11.9 Type 2 diabetes mellitus without complications; E78.2 Mixed hyperlipidemia; Z12.5 Encounter for screening for malignant neoplasm of prostate; E55.9 Vitamin D deficiency, unspecified
CPT/HCPCS: 36415; 80053; 80061; 82043; 82306; 83036; G0103

== ENCOUNTER → 2020-10-16 | Outpatient (CLI) | payer MEDICARE, OTHER ==
[2020-10-16 13:56] LABS: HEMOGLOBIN A1c 6.4 %
[2020-10-16 14:08] LABS: CREATININE FOR GFR 1.37 MG/DL (0.70-1.30); GLOMERULAR FILTRATION RATE 55.5 (>49); POTASSIUM SERUM 4.4 MEQ/L (3.5-5.1)
== END ==
LOC: M PLALAB 09:52
PROVIDERS: ATTEND Physician Assistant
DX: E11.9 Type 2 diabetes mellitus without complications (principal)

== ENCOUNTER → 2021-04-18 | Outpatient (CLI) | payer MEDICARE, MEDICAID ==
[~2021-04-18] MED LIST changes: -LISI20TA20 PO; +LISI20TA37 PO
[2021-04-18 11:00] LABS: ALBUMIN 3.6 GM/DL (3.2-5.2); ALT/SGPT 31 U/L (12-78); BILIRUBIN,TOTAL 0.3 MG/DL (0.2-1.0); BLOOD UREA NITROGEN 22 MG/DL (7-18); CALCIUM LEVEL 9.2 MG/DL (8.8-10.2); CARBON DIOXIDE LEVEL 25 MEQ/L (21-32); CHLORIDE LEVEL 105 MEQ/L (98-107); CHOLESTEROL LEVEL 151 MG/DL (<200); CHOLESTEROL RISK RATIO 3.973 (<5); CREATININE FOR GFR 1.18 MG/DL (0.70-1.30); FREE T4 1.03 NG/DL (0.76-1.46); GLOMERULAR FILTRATION RATE > 60.0 (>49); GLUCOSE, FASTING 123 MG/DL (70-100); HDL CHOLESTEROL 38 MG/DL (>40); LDL CHOLESTEROL 82 MG/DL (<100); NON-HDL-C 113 MG/DL; POTASSIUM SERUM 4.5 MEQ/L (3.5-5.1); SODIUM LEVEL 139 MEQ/L (136-145); TOTAL PROTEIN 7.7 GM/DL (6.4-8.2); TRIGLYCERIDES LEVEL 153 MG/DL (<150)
[2021-04-18 11:01] LABS: TOTAL 25(OH) VITAMIN D 21.3 NG/ML (30.0-100.0)
[2021-04-18 11:02] LABS: PTH INTACT 54.1 PG/ML (18.5-88.0)
[2021-04-18 11:14] LABS: CREATININE, URINE 55.8 MG/DL; MAU/CREAT RATIO 37.6 MCG/MG (0.0-30.0)
[2021-04-18 11:43] LABS: HEMOGLOBIN A1c 6.6 %
== END ==
LOC: M PLALAB 08:14
PROVIDERS: ATTEND Nurse Practitioner Family
DX: E11.9 Type 2 diabetes mellitus without complications (principal); E78.2 Mixed hyperlipidemia; Z79.899 Other long term (current) drug therapy

== ENCOUNTER → 2021-08-31 | Outpatient (CLI) | payer MEDICARE, MEDICAID ==
[2021-08-31 10:44] LABS: ALBUMIN 3.7 GM/DL (3.2-5.2); ALT/SGPT 23 U/L (12-78); BILIRUBIN,TOTAL 0.9 MG/DL (0.2-1.0); BLOOD UREA NITROGEN 20 MG/DL (7-18); CALCIUM LEVEL 9.1 MG/DL (8.8-10.2); CARBON DIOXIDE LEVEL 26 MEQ/L (21-32); CHLORIDE LEVEL 106 MEQ/L (98-107); CHOLESTEROL LEVEL 124 MG/DL (<200); CREATININE FOR GFR 1.18 MG/DL (0.70-1.30); GLOMERULAR FILTRATION RATE > 60.0 (>49); GLUCOSE, FASTING 144 MG/DL (70-100); HDL CHOLESTEROL 40 MG/DL (>40); LDL CHOLESTEROL 59 MG/DL (<100); NON-HDL-C 84 MG/DL; POTASSIUM SERUM 4.8 MEQ/L (3.5-5.1); SODIUM LEVEL 136 MEQ/L (136-145); TRIGLYCERIDES LEVEL 126 MG/DL (<150)
[2021-08-31 10:53] LABS: HEMOGLOBIN A1c 6.9 %; MAU/CREAT RATIO 80.1 MCG/MG (0.0-30.0)
== END ==
LOC: M PLALAB 08:13
PROVIDERS: ATTEND Nurse Practitioner Family
DX: E78.2 Mixed hyperlipidemia (principal); I10 Essential (primary) hypertension; E11.9 Type 2 diabetes mellitus without complications

== ENCOUNTER → 2022-01-23 | Outpatient (CLI) | payer MEDICARE ==
[2022-01-23 11:20] LABS: BASO # 0.1 10^3/uL (0.0-0.2); EOS # 0.2 10^3/uL (0.0-0.5); EOS % 2.5 % (0.0-3.0); HEMATOCRIT 41.9 % (42.0-52.0); HEMOGLOBIN 13.8 g/dl (13.5-17.5); LYMPH # 1.9 10^3/uL (1.5-5.0); MEAN CORPUSCULAR HEMOGLOBIN 32.9 pg (27.0-33.0); MEAN CORPUSCULAR HGB CONC 32.9 g/dl (32.0-36.5); MONO # 0.7 10^3/uL (0.0-0.8); MONO % 9.5 % (2.0-8.0); NEUTROPHILS # 4.4 10^3/uL (1.5-8.5); NEUTROPHILS % 60.7 % (36.0-66.0); PLATELET COUNT, AUTOMATED 245 10^3/uL (150-450); RED BLOOD COUNT 4.19 10^6/uL (4.30-6.10); WHITE BLOOD COUNT 7.2 10^3/uL (4.0-10.0)
[2022-01-23 11:58] LABS: ALBUMIN 3.8 G/DL (3.2-5.2); BILIRUBIN,TOTAL 0.5 MG/DL (0.3-1.2); CALCIUM LEVEL 9.3 MG/DL (8.3-10.6); CHOLESTEROL RISK RATIO 5.95 (<5); CREATININE FOR GFR 1.35 MG/DL (0.70-1.30); GLOMERULAR FILTRATION RATE 56.3 (>49); LDL CHOLESTEROL 134.4 MG/DL (<100); POTASSIUM SERUM 4.5 MMOL/L (3.5-5.1); TOTAL PROTEIN 7.6 G/DL (5.7-8.2)
[2022-01-23 12:01] LABS: TOTAL 25(OH) VITAMIN D 22.4 NG/ML (20.0-100.0)
[2022-01-23 12:09] LABS: CREATININE, URINE 29.4 MG/DL; MALB URINE SIEMENS < 5.0 MG/DL
[2022-01-23 12:40] LABS: HEMOGLOBIN A1c 6.5 % (4.0-6.0)
== END ==
LOC: M PLALAB 08:16
PROVIDERS: ATTEND Nurse Practitioner Family
DX: E11.9 Type 2 diabetes mellitus without complications (principal); E55.9 Vitamin D deficiency, unspecified; E78.2 Mixed hyperlipidemia; I10 Essential (primary) hypertension

== ENCOUNTER → 2022-06-17 | Outpatient (CLI) | payer MEDICARE, MEDICAID ==
[2022-06-17 11:12] LABS: BASO # 0.1 10^3/uL (0.0-0.2); EOS # 0.1 10^3/uL (0.0-0.5); EOS % 1.8 % (0.0-3.0); HEMATOCRIT 42.4 % (42.0-52.0); HEMOGLOBIN 14.1 g/dl (13.5-17.5); LYMPH % 28.2 % (24.0-44.0); MEAN CORPUSCULAR HGB CONC 33.3 g/dl (32.0-36.5); MEAN CORPUSCULAR VOLUME 99.3 fl (80.0-96.0); MONO # 0.9 10^3/uL (0.0-0.8); MONO % 12.5 % (2.0-8.0); NEUTROPHILS % 56.1 % (36.0-66.0); PLATELET COUNT, AUTOMATED 258 10^3/uL (150-450); RED BLOOD COUNT 4.27 10^6/uL (4.30-6.10); WHITE BLOOD COUNT 7.1 10^3/uL (4.0-10.0)
[2022-06-17 11:18] LABS: HEMOGLOBIN A1c 6.8 % (4.0-6.0)
[2022-06-17 11:34] LABS: VITAMIN B12 LEVEL 282 PG/ML (211-911)
[2022-06-17 11:35] LABS: TOTAL 25(OH) VITAMIN D 18.7 NG/ML (20.0-100.0)
[2022-06-17 11:36] LABS: ALBUMIN 3.7 G/DL (3.2-5.2); ALKALINE PHOSPHATASE 93 U/L (46-116); ALT/SGPT 26 U/L (7.0-40); AST/SGOT 27 U/L (<34); BILIRUBIN,TOTAL 0.5 MG/DL (0.3-1.2); BLOOD UREA NITROGEN 27 MG/DL (9-23); CALCIUM LEVEL 9.3 MG/DL (8.3-10.6); CARBON DIOXIDE LEVEL 28 MMOL/L (20-31); CHLORIDE LEVEL 102 MMOL/L (98-107); CHOLESTEROL LEVEL 184 MG/DL (<200); CHOLESTEROL RISK RATIO 5.45 (<5); CREATININE FOR GFR 1.06 MG/DL (0.70-1.30); GLOMERULAR FILTRATION RATE > 60.0 (>49); GLUCOSE, FASTING 146 MG/DL (74-106); HDL CHOLESTEROL 33.7 MG/DL (>40); LDL CHOLESTEROL 80.5 MG/DL (<100); NON-HDL-C 150.3 MG/DL; POTASSIUM SERUM 4.6 MMOL/L (3.5-5.1); SODIUM LEVEL 137 MMOL/L (136-145); TOTAL PROTEIN 7.4 G/DL (5.7-8.2); TRIGLYCERIDES LEVEL 349 MG/DL (<150)
[2022-06-17 11:53] LABS: CREATININE, URINE 32.6 MG/DL
[2022-06-17 11:54] LABS: MAU/CREAT RATIO 30.6 MCG/MG (0.0-30.0)
== END ==
LOC: M PLALAB 07:17
PROVIDERS: ATTEND Nurse Practitioner Family
DX: E11.9 Type 2 diabetes mellitus without complications (principal); E78.2 Mixed hyperlipidemia; E55.9 Vitamin D deficiency, unspecified; Z12.5 Encounter for screening for malignant neoplasm of prostate; E53.8 Deficiency of other specified B group vitamins
CPT/HCPCS: 36415; 80053; 80061; 82043; 82306; 82607; 83036; 85025; G0103

== ENCOUNTER → 2022-12-27 | Outpatient (CLI) | payer MEDICARE, MEDICAID ==
[2022-12-27 10:35] LABS: ALBUMIN 3.5 G/DL (3.2-5.2); ALKALINE PHOSPHATASE 89 U/L (46-116); ALT/SGPT 28 U/L (7.0-40); AST/SGOT 27 U/L (<34); BILIRUBIN,TOTAL 0.5 MG/DL (0.3-1.2); BLOOD UREA NITROGEN 16 MG/DL (9-23); CALCIUM LEVEL 9.2 MG/DL (8.3-10.6); CARBON DIOXIDE LEVEL 29 MMOL/L (20-31); CHLORIDE LEVEL 103 MMOL/L (98-107); CREATININE FOR GFR 1.06 MG/DL (0.70-1.30); CREATININE, URINE 76.5 MG/DL; GLOMERULAR FILTRATION RATE > 60.0 (>49); GLUCOSE, FASTING 147 MG/DL (74-106); MAU/CREAT RATIO 43.1 MCG/MG (0.0-30.0); POTASSIUM SERUM 4.9 MMOL/L (3.5-5.1); SODIUM LEVEL 140 MMOL/L (136-145); TOTAL PROTEIN 7.3 G/DL (5.7-8.2)
[2022-12-27 10:37] LABS: TOTAL 25(OH) VITAMIN D 23.5 NG/ML (20.0-100.0)
[2022-12-27 11:16] LABS: HEMOGLOBIN A1c 6.8 % (4.0-6.0)
== END ==
LOC: M PLALAB 07:05
PROVIDERS: ATTEND Nurse Practitioner Family
DX: E11.9 Type 2 diabetes mellitus without complications (principal); E55.9 Vitamin D deficiency, unspecified

== ENCOUNTER → 2023-05-28 | Outpatient (CLI) | payer MEDICARE, MEDICAID ==
[2023-05-28 12:11] LABS: BASO # 0.1 10^3/uL (0.0-0.2); BASO % 0.8 % (0.0-1.0); EOS # 0.1 10^3/uL (0.0-0.5); EOS % 1.2 % (0.0-3.0); HEMATOCRIT 43.5 % (42.0-52.0); HEMOGLOBIN 14.7 g/dl (13.5-17.5); LYMPH # 1.9 10^3/uL (1.5-5.0); LYMPH % 25.2 % (24.0-44.0); MEAN CORPUSCULAR HGB CONC 33.8 g/dl (32.0-36.5); MEAN CORPUSCULAR VOLUME 97.5 fl (80.0-96.0); MONO # 0.7 10^3/uL (0.0-0.8); MONO % 9.6 % (2.0-8.0); NEUTROPHILS # 4.6 10^3/uL (1.5-8.5); NEUTROPHILS % 62.9 % (36.0-66.0); PLATELET COUNT, AUTOMATED 266 10^3/uL (150-450); RED BLOOD COUNT 4.46 10^6/uL (4.30-6.10); WHITE BLOOD COUNT 7.4 10^3/uL (4.0-10.0)
[2023-05-28 12:36] LABS: PSA SCREENING 0.84 NG/ML (< 4.00)
[2023-05-28 12:38] LABS: CREATININE, URINE 24.2 MG/DL
[2023-05-28 12:40] LABS: ALBUMIN 3.9 G/DL (3.2-5.2); ALKALINE PHOSPHATASE 81 U/L (46-116); ALT/SGPT 31 U/L (7.0-40); AST/SGOT 28 U/L (<34); BILIRUBIN,TOTAL 0.8 MG/DL (0.3-1.2); BLOOD UREA NITROGEN 19 MG/DL (9-23); CALCIUM LEVEL 9.5 MG/DL (8.3-10.6); CARBON DIOXIDE LEVEL 24 MMOL/L (20-31); CHLORIDE LEVEL 104 MMOL/L (98-107); CHOLESTEROL LEVEL 180 MG/DL (<200); CHOLESTEROL RISK RATIO 3.92 (<5); CREATININE FOR GFR 1.04 MG/DL (0.70-1.30); GLOMERULAR FILTRATION RATE > 60.0 (>49); GLUCOSE, FASTING 121 MG/DL (74-106); HDL CHOLESTEROL 45.9 MG/DL (>40); LDL CHOLESTEROL 107.5 MG/DL (<100); MAGNESIUM LEVEL 1.8 MG/DL (1.8-2.4); NON-HDL-C 134.1 MG/DL; POTASSIUM SERUM 4.7 MMOL/L (3.5-5.1); SODIUM LEVEL 136 MMOL/L (136-145); TOTAL 25(OH) VITAMIN D 26.5 NG/ML (20.0-100.0); TOTAL PROTEIN 7.6 G/DL (5.7-8.2); TRIGLYCERIDES LEVEL 133 MG/DL (<150)
[2023-05-28 12:41] LABS: VITAMIN B12 LEVEL 516 PG/ML (211-911)
== END ==
LOC: M PLALAB 09:08
PROVIDERS: ATTEND Nurse Practitioner Family
DX: E11.9 Type 2 diabetes mellitus without complications (principal); I25.10 Atherosclerotic heart disease of native coronary artery without angina pectoris; E55.9 Vitamin D deficiency, unspecified; Z12.5 Encounter for screening for malignant neoplasm of prostate; E78.2 Mixed hyperlipidemia; I10 Essential (primary) hypertension; E53.8 Deficiency of other specified B group vitamins
CPT/HCPCS: 36415; 80053; 80061; 82043; 82306; 82607; 83036; 83735; 85025; G0103

== ENCOUNTER → 2023-12-01 | Outpatient (CLI) | payer MEDICARE, MEDICAID ==
[2023-12-01 11:02] LABS: BASO # 0.1 10^3/uL (0.0-0.2); BASO % 0.8 % (0.0-1.0); EOS # 0.3 10^3/uL (0.0-0.5); EOS % 4.1 % (0.0-3.0); HEMATOCRIT 42.8 % (42.0-52.0); HEMOGLOBIN 14.4 g/dl (13.5-17.5); LYMPH # 1.6 10^3/uL (1.5-5.0); LYMPH % 22.5 % (24.0-44.0); MEAN CORPUSCULAR HEMOGLOBIN 33.3 pg (27.0-33.0); MEAN CORPUSCULAR HGB CONC 33.6 g/dl (32.0-36.5); MEAN CORPUSCULAR VOLUME 98.8 fl (80.0-96.0); MONO # 0.8 10^3/uL (0.0-0.8); MONO % 10.5 % (2.0-8.0); NEUTROPHILS # 4.4 10^3/uL (1.5-8.5); NEUTROPHILS % 61.7 % (36.0-66.0); PLATELET COUNT, AUTOMATED 229 10^3/uL (150-450); RED BLOOD COUNT 4.33 10^6/uL (4.30-6.10); WHITE BLOOD COUNT 7.2 10^3/uL (4.0-10.0)
[2023-12-01 11:21] LABS: HEMOGLOBIN A1c 6.6 % (4.0-6.0)
[2023-12-01 11:27] LABS: CREATININE, URINE 104.8 MG/DL; MAU/CREAT RATIO 12.4 MCG/MG (0.0-30.0)
[2023-12-01 11:31] LABS: ALBUMIN 3.7 G/DL (3.2-5.2); ALKALINE PHOSPHATASE 81 U/L (46-116); ALT/SGPT 41 U/L (7.0-40); AST/SGOT 24 U/L (<34); BILIRUBIN,TOTAL 0.9 MG/DL (0.3-1.2); BLOOD UREA NITROGEN 20 MG/DL (9-23); CALCIUM LEVEL 9.5 MG/DL (8.3-10.6); CARBON DIOXIDE LEVEL 27 MMOL/L (20-31); CHLORIDE LEVEL 103 MMOL/L (98-107); CREATININE FOR GFR 1.18 MG/DL (0.70-1.30); GLOMERULAR FILTRATION RATE > 60.0 (>49); GLUCOSE, FASTING 133 MG/DL (74-106); POTASSIUM SERUM 4.3 MMOL/L (3.5-5.1); SODIUM LEVEL 138 MMOL/L (136-145); TOTAL PROTEIN 7.7 G/DL (5.7-8.2)
== END ==
LOC: M PLALAB 08:10
PROVIDERS: ATTEND Nurse Practitioner Family
DX: E11.9 Type 2 diabetes mellitus without complications (principal)

== ENCOUNTER → 2024-02-16 | Outpatient (CLI) | payer MEDICARE, MEDICAID ==
[2024-02-16 13:15] LABS: BASO # 0.1 10^3/uL (0.0-0.2); BASO % 0.5 % (0.0-1.0); EOS # 0.1 10^3/uL (0.0-0.5); EOS % 0.8 % (0.0-3.0); HEMATOCRIT 38.4 % (42.0-52.0); HEMOGLOBIN 12.3 g/dl (13.5-17.5); LYMPH # 1.3 10^3/uL (1.5-5.0); LYMPH % 12.1 % (24.0-44.0); MEAN CORPUSCULAR HEMOGLOBIN 31.9 pg (27.0-33.0); MEAN CORPUSCULAR VOLUME 99.7 fl (80.0-96.0); MONO # 0.8 10^3/uL (0.0-0.8); MONO % 7.3 % (2.0-8.0); NEUTROPHILS # 8.5 10^3/uL (1.5-8.5); NEUTROPHILS % 78.8 % (36.0-66.0); PLATELET COUNT, AUTOMATED 269 10^3/uL (150-450); RED BLOOD COUNT 3.85 10^6/uL (4.30-6.10); WHITE BLOOD COUNT 10.8 10^3/uL (4.0-10.0)
[2024-02-16 13:23] LABS: ALBUMIN 3.6 G/DL (3.2-5.2); BILIRUBIN,TOTAL 0.6 MG/DL (0.3-1.2); CALCIUM LEVEL 9.5 MG/DL (8.3-10.6); CREATININE FOR GFR 1.91 MG/DL (0.70-1.30); GLOMERULAR FILTRATION RATE 37.5 (>49); POTASSIUM SERUM 4.9 MMOL/L (3.5-5.1); TOTAL PROTEIN 8.3 G/DL (5.7-8.2)
== END ==
LOC: M PLALAB 10:01
PROVIDERS: ATTEND Nurse Practitioner Family
DX: Z95.1 Presence of aortocoronary bypass graft (principal); E11.9 Type 2 diabetes mellitus without complications

== ENCOUNTER → 2024-02-24 | Outpatient (CLI) | payer MEDICARE, MEDICAID ==
[2024-02-24 17:18] LABS: BASO # 0.1 10^3/uL (0.0-0.2); BASO % 0.7 % (0.0-1.0); EOS # 0.2 10^3/uL (0.0-0.5); EOS % 1.4 % (0.0-3.0); HEMATOCRIT 36.4 % (42.0-52.0); HEMOGLOBIN 12.1 g/dl (13.5-17.5); LYMPH # 1.8 10^3/uL (1.5-5.0); LYMPH % 17.3 % (24.0-44.0); MEAN CORPUSCULAR HEMOGLOBIN 33.1 pg (27.0-33.0); MEAN CORPUSCULAR HGB CONC 33.2 g/dl (32.0-36.5); MEAN CORPUSCULAR VOLUME 99.5 fl (80.0-96.0); MONO # 0.7 10^3/uL (0.0-0.8); MONO % 6.8 % (2.0-8.0); NEUTROPHILS # 7.7 10^3/uL (1.5-8.5); NEUTROPHILS % 73.5 % (36.0-66.0); PLATELET COUNT, AUTOMATED 283 10^3/uL (150-450); RED BLOOD COUNT 3.66 10^6/uL (4.30-6.10); WHITE BLOOD COUNT 10.5 10^3/uL (4.0-10.0)
[2024-02-24 17:22] LABS: ALBUMIN 3.6 G/DL (3.2-5.2); BILIRUBIN,TOTAL 0.5 MG/DL (0.3-1.2); CALCIUM LEVEL 9.8 MG/DL (8.3-10.6); CREATININE FOR GFR 1.35 MG/DL (0.70-1.30); POTASSIUM SERUM 4.7 MMOL/L (3.5-5.1); TOTAL PROTEIN 7.8 G/DL (5.7-8.2)
== END ==
LOC: M PLALAB 14:34
PROVIDERS: ATTEND Nurse Practitioner Family
DX: I10 Essential (primary) hypertension (principal)

== ENCOUNTER 2024-03-27 12:39 | Emergency (ER) | payer MEDICARE, MEDICAID ==
[~2024-03-27] VITALS: Ht 188 cm; Wt 90.1 kg
[2024-03-27 14:28] LABS: BASO % 0.4 % (0.0-1.0); EOS % 0.3 % (0.0-3.0); HEMATOCRIT 36.3 % (42.0-52.0); HEMOGLOBIN 12.2 g/dl (13.5-17.5); MEAN CORPUSCULAR HEMOGLOBIN 32.4 pg (27.0-33.0); MEAN CORPUSCULAR HGB CONC 33.6 g/dl (32.0-36.5); MEAN CORPUSCULAR VOLUME 96.3 fl (80.0-96.0); MONO # 0.9 10^3/uL (0.0-0.8); MONO % 8.6 % (2.0-8.0); NEUTROPHILS # 8.9 10^3/uL (1.5-8.5); NEUTROPHILS % 81.3 % (36.0-66.0); PLATELET COUNT, AUTOMATED 247 10^3/uL (150-450); RED BLOOD COUNT 3.77 10^6/uL (4.30-6.10); WHITE BLOOD COUNT 10.9 10^3/uL (4.0-10.0)
[2024-03-27 14:58] LABS: CALCIUM LEVEL 8.9 MG/DL (8.3-10.6); CK-MB VALUE MASS 1.7 NG/ML (<3.6); CREATININE FOR GFR 1.29 MG/DL (0.70-1.30); GLOMERULAR FILTRATION RATE 58.8 (>49); MAGNESIUM LEVEL 1.9 MG/DL (1.8-2.4); POTASSIUM SERUM 4.4 MMOL/L (3.5-5.1)
[2024-03-27 15:01] LABS: THYROID STIMULATING HORMONE 4.044 uIU/ML (0.55-4.78)
[2024-03-27 15:06] LABS: MB/CK RELATIVE INDEX 0.56 (< OR =4)
[2024-03-27 16:37] LABS: CK-MB VALUE MASS 2.7 NG/ML (<3.6)
[2024-03-27 16:48] LABS: MB/CK RELATIVE INDEX 0.85 (< OR =4)
[2024-03-27 17:30] VITALS: BP 139/74; TEMP 98.8; O2SAT 100
== END 2024-03-27 17:39 | disposition home or self-care (01) ==
LOC: EDBD 12:39 → M ED 12:39
DX: R55 Syncope and collapse (principal); I48.91 Unspecified atrial fibrillation; I25.10 Atherosclerotic heart disease of native coronary artery without angina pectoris; I25.2 Old myocardial infarction; E11.9 Type 2 diabetes mellitus without complications; I10 Essential (primary) hypertension; E78.5 Hyperlipidemia, unspecified; Z95.1 Presence of aortocoronary bypass graft

== ENCOUNTER → 2024-07-05 | Outpatient (CLI) | payer MEDICARE, MEDICAID ==
[2024-07-05 11:18] LABS: BASO # 0.1 10^3/uL (0.0-0.2); BASO % 0.8 % (0.0-1.0); EOS # 0.1 10^3/uL (0.0-0.5); EOS % 2.2 % (0.0-3.0); HEMATOCRIT 41.9 % (42.0-52.0); HEMOGLOBIN 13.4 g/dl (13.5-17.5); LYMPH # 1.7 10^3/uL (1.5-5.0); LYMPH % 27.5 % (24.0-44.0); MEAN CORPUSCULAR HEMOGLOBIN 32.3 pg (27.0-33.0); MONO # 0.7 10^3/uL (0.0-0.8); MONO % 11.4 % (2.0-8.0); NEUTROPHILS # 3.5 10^3/uL (1.5-8.5); NEUTROPHILS % 57.8 % (36.0-66.0); PLATELET COUNT, AUTOMATED 225 10^3/uL (150-450); RED BLOOD COUNT 4.15 10^6/uL (4.30-6.10)
[2024-07-05 11:56] LABS: ALBUMIN 3.8 G/DL (3.2-5.2); BILIRUBIN,TOTAL 0.6 MG/DL (0.3-1.2); CALCIUM LEVEL 9.5 MG/DL (8.3-10.6); CHOLESTEROL RISK RATIO 1.95 (<5); CREATININE FOR GFR 1.17 MG/DL (0.70-1.30); CREATININE, URINE 63.1 MG/DL; GLOMERULAR FILTRATION RATE 67.5 (>49); HDL CHOLESTEROL 33.2 MG/DL (>40); LDL CHOLESTEROL 20.6 MG/DL (<100); MAGNESIUM LEVEL 2.1 MG/DL (1.8-2.4); MAU/CREAT RATIO 6.3 MCG/MG (0.0-30.0); NON-HDL-C 31.8 MG/DL; POTASSIUM SERUM 4.8 MMOL/L (3.5-5.1); TOTAL PROTEIN 7.6 G/DL (5.7-8.2)
[2024-07-05 12:45] LABS: HEMOGLOBIN A1c 6.2 % (4.0-6.0)
[2024-07-05 12:51] LABS: PSA SCREENING 0.65 NG/ML (< 4.00)
== END ==
LOC: M PLALAB 08:15
PROVIDERS: ATTEND Nurse Practitioner Family
DX: E55.9 Vitamin D deficiency, unspecified (principal); Z12.5 Encounter for screening for malignant neoplasm of prostate; I10 Essential (primary) hypertension; E53.8 Deficiency of other specified B group vitamins; E78.2 Mixed hyperlipidemia; E11.9 Type 2 diabetes mellitus without complications
CPT/HCPCS: 36415; 80053; 80061; 82043; 82607; 82652; 83036; 83735; 85025; G0103

== ENCOUNTER → 2024-12-08 | Outpatient (CLI) | payer MEDICARE, MEDICAID ==
[~2024-12-08] MED LIST changes: +B-122500 PO; -EZET10TA21 PO; +EZET10TA57 PO; +FARX1TAB3 PO; +LISI20TA33 PO; +NOXI1TAB PO; +PANT40TA29 PO; +REPA140I2 SQ; +VITA500T9 PO; +VITATAB73 PO
[2024-12-08 14:11] LABS: BASO # 0.1 10^3/uL (0.0-0.2); BASO % 0.9 % (0.0-1.0); EOS # 0.1 10^3/uL (0.0-0.5); EOS % 1.9 % (0.0-3.0); LYMPH # 1.6 10^3/uL (1.5-5.0); LYMPH % 23.7 % (24.0-44.0); MONO # 0.7 10^3/uL (0.0-0.8); MONO % 9.4 % (2.0-8.0); NEUTROPHILS # 4.4 10^3/uL (1.5-8.5); NEUTROPHILS % 63.8 % (36.0-66.0); PLATELET COUNT, AUTOMATED 226 10^3/uL (150-450)
[2024-12-08 14:15] LABS: ALT/SGPT 31.0 U/L (7.0-40); AST/SGOT 32.0 U/L (<34); CALCIUM LEVEL 9.3 MG/DL (8.3-10.6); CARBON DIOXIDE LEVEL 27.0 MMOL/L (20-31); CHLORIDE LEVEL 105.0 MMOL/L (98-107); CHOLESTEROL LEVEL 95.0 MG/DL (<200); CHOLESTEROL RISK RATIO 2.47 (<5); CREATININE FOR GFR 1.08 MG/DL (0.70-1.30); GLOMERULAR FILTRATION RATE 74.3 (>49); LDL CHOLESTEROL 42.0 MG/DL (<100); MAGNESIUM LEVEL 2.1 MG/DL (1.8-2.4); NON-HDL-C 56.6 MG/DL; POTASSIUM SERUM 4.9 MMOL/L (3.5-5.1); PSA SCREENING 0.75 NG/ML (< 4.00); SODIUM LEVEL 141.0 MMOL/L (136-145); TRIGLYCERIDES LEVEL 73.0 MG/DL (<150)
[2024-12-08 14:16] LABS: TOTAL 25(OH) VITAMIN D 63.5 NG/ML (20.0-100.0)
[2024-12-08 14:17] LABS: VITAMIN B12 LEVEL 822.0 PG/ML (211-911)
[2024-12-08 14:38] LABS: ESTIMATED AVERAGE GLUCOSE 128.0 MG/DL (60-110)
[2024-12-08 14:43] LABS: CREATININE, URINE 97.4 MG/DL; MALB URINE SIEMENS 4.0 MG/L; MAU/CREAT RATIO 4.1 MCG/MG (0.0-30.0)
== END ==
LOC: M PLALAB 08:10
PROVIDERS: ATTEND Nurse Practitioner Family
DX: E53.8 Deficiency of other specified B group vitamins (principal); I10 Essential (primary) hypertension; E78.2 Mixed hyperlipidemia; E55.9 Vitamin D deficiency, unspecified; E11.9 Type 2 diabetes mellitus without complications; Z12.5 Encounter for screening for malignant neoplasm of prostate
CPT/HCPCS: 36415; 80053; 80061; 82043; 82306; 82607; 83036; 83735; 85025; G0103